=== PATIENT | male | born 1950 | race Caucasian/White ===

== ENCOUNTER → 2016-04-06 | Day surgery (SDC) | payer OTHER ==
[2016-04-03 11:45] VITALS: Ht 172.7 cm; Wt 127.3 kg
[~2016-04-06] VITALS: Ht 172.7 cm; Wt 127.3 kg
[~2016-04-06] MED LIST: ALLO300T2 PO; ATOR-24 PO; CARV12.52 PO; DABI150C PO; IOPAMIDOL INJ 61% 15 ML VIAL ONE; LIDOCAINE HCL 1% MPF 5 ML VIAL ONE; MULT-506 PO; NORT10CA PO; NORT10CA2 PO; OXYC1TAB3 PO; PRED10TA PO; SODIUM CHLORIDE 0.9% INJ 10 ML VIAL ONE
[2016-04-06 14:05] VITALS: TEMP 36.8
--- NOTE | 2016-04-06 15:01 | History & Physical Bridge - [place] ---
H&P Re-Evaluation Bridge Note: I have examined the patient, reviewed the History & Physical and in the interval since the performance of the History & Physical I have noted the following changes of clinical significance: No changes noted
[2016-04-06 15:23] VITALS: BP_SYST 146; PULSE 103; O2SAT 96
--- NOTE | 2016-04-06 15:26 | Discharge Instructions ---
Discharge Instructions Visit Reason for Visit: Lumbar Radiculopathy Discharge Discharge Diagnosis / Problem: left leg pain Discharge Goals Goal(s): Decrease discomfort, Improve function Medications Stopped Medications Name(s): Pradaxa Activity Recommendations Activity Limitations: resume your previous activity Anesthesia . Post Anesthesia Instructions: If you have had General Anesthesia or IV Sedation: * Do not drive today. * Resume driving when surgeon permits. * Do not make important decisions or sign legal documents today. * Call surgeon for: 1. Temperature elevations greater than 101 degrees F. 2. Uncontrollable pain. 3. Excessive bleeding. 4. Persistent nausea and vomiting. 5. Medication intolerance (nausea, vomiting or rash). * For nausea and vomiting use only clear liquids such as: tea, soda, bouillon until nausea subsides, then gradually increase diet as tolerated. * If you have any concerns or questions, call your surgeon's office. If physician is unavailable and it is an emergency, call 911 or go to the nearest emergency room. . Diet Recommendations Recommended Home Diet: resume previous diet Procedures Procedures Performed: Lumbar Epidural Steroid Injection Pending Studies Studies pending at discharge: no Medical Emergencies . Who to Call and When: Medical Emergencies: If at any time you feel your situation is an emergency, please call 911 immediately. . Non-Emergent Contact Non-Emergency issues call your: Specialist . . "Provider Documentation" section prepared by Tanner Victoria.
--- NOTE | 2016-04-06 15:37 | OPERATIVE REPORT ---
DATE OF OPERATION: 04/06/2016 PREOPERATIVE DIAGNOSES: Grade 1 L5-S1 spondylolisthesis with foraminal narrowing, and the left S1 radiculopathy. POSTOPERATIVE DIAGNOSES: Same. PROCEDURE: Left paramedian L5-S1 intralaminar epidural steroid injection under fluoroscopic guidance. INDICATIONS FOR PROCEDURE: The patient is a 65-year-old white male who presents today for an epidural steroid injection. He responded favorably to an epidural injection 6 months ago. The pain has returned and he is not responding to conservative measures, currently presents to proceed with an epidural injection to provide him with relief in both function and pain. PHYSICAL EXAMINATION: Pleasant male, seated somewhat comfortably. He has point tenderness to palpation of the left sciatic notch. He had normal lower extremity strength and sensation with negative seated straight leg raises. CONSENT: Verbal and written consent was obtained from the patient. Risks and benefits were reviewed. Risks include but are not limited to epidural abscess, epidural hematoma, allergic reaction, dural puncture. The patient wishes to proceed. DESCRIPTION OF PROCEDURE: The patient was taken back to the special procedures room of the [facility] where he was maintained in a prone position. Backside was cleansed with Betadine x3 and a dry sterile dressing was applied. Fluoroscope was used to identify the L5-S1 intralaminar space and overlying skin on the left side was anesthetized with 4 mL of lidocaine 1% with a 25-gauge 1.5-inch needle. A 22-gauge 4.25-inch Tuohy needle was then directed down towards the intralaminar space. It was advanced under lateral fluoroscopic guidance. Loss of resistance was noted at a total depth of 12 cm with the hub of the needle on the skin. He then underwent injection of 1 mL of Isovue 300 contrast which demonstrated epidural uptake which was confirmed by both AP and lateral views. He then underwent injection after negative aspiration of 40 mg of Depo-Medrol and 4 mL of preservative free sodium chloride. Injection was well tolerated. DISPOSITION: 1. The patient is taken out into the discharge recovery area where he will be discharged home once discharge criteria have been met. 2. Follow up in the [facility] office in 2-4 weeks. I attest to the content of the Intraoperative Record and any orders documented therein. Any exceptio ns are noted below.
== END | disposition home or self-care (01) ==
LOC: X.SURG 13:59
PROVIDERS: ATTEND Physical Medicine & Rehabilitation
DX: M43.16 Spondylolisthesis, lumbar region (principal); M48.06 Spinal stenosis, lumbar region; M54.16 Radiculopathy, lumbar region; I48.91 Unspecified atrial fibrillation; E11.9 Type 2 diabetes mellitus without complications; I50.9 Heart failure, unspecified; E78.5 Hyperlipidemia, unspecified; Z98.890 Other specified postprocedural states

== ENCOUNTER 2016-04-17 04:31 | Emergency (ER) | payer OTHER ==
[~2016-04-17] VITALS: Ht 172.7 cm; Wt 115.5 kg
[~2016-04-17 04:31] MED LIST changes: -IOPAMIDOL INJ 61% 15 ML VIAL ONE; -LIDOCAINE HCL 1% MPF 5 ML VIAL ONE; -NORT10CA2 PO; -OXYC1TAB3 PO; -PRED10TA PO; -SODIUM CHLORIDE 0.9% INJ 10 ML VIAL ONE
[2016-04-17 04:37] VITALS: TEMP 36.7; Ht 172.7 cm; Wt 115.5 kg
[2016-04-17] MEDS ORDERED: ONDANSETRON INJ 2 MG/ML 2 ML VIAL IV STA (04:50)
[2016-04-17] MEDS ORDERED: SODIUM CHLORIDE 0.9% 1000ML 1,000 ML IV STA (04:50)
[2016-04-17] MEDS ORDERED: HYDROmorphone INJ 1 MG/ML SYR IV STA (04:50)
--- NOTE | 2016-04-17 05:14 | EMERGENCY ROOM VISIT NOTE ---
History Report prepared by Joselo: Oumou Tolentino Under the Supervision of: Dr. Clark Brar M.D. First contact with patient: 04:41 Chief Complaint: GROIN PAIN Stated Complaint: SEVERE PAIN IN GROIN AREA/LEG History of Present Illness The patient is a 65 year old male who presents to the Emergency Room with complaints of constant left hip pain beginning 1 week ago. The patient states that he had an epidural 10 days ago for sciatica and it helped for a few days before he began feeling hip and leg pain. He reports that his doctor saw him the next day to rule out a blood clot and he found nothing and thought that his pain may be muscle related. He complains of pressure deep in his hip and notes that his pain is worsened with sitting down. The patient denies any back pain, chest pain, shortness of breath, rash, abdominal pain, calf pain, incontinence, numbness, and weakness. He notes that he has been taking Tylenol and is on Pradaxa for A-Fib which he stopped taking 4 days before his epidural. The patient notes that he was on steroids for 10 days before the epidural. He reports a history of 2 cervical surgeries. Source of History: patient Onset: 1 week ago Position: other (left hip) Quality: pressure Timing: constant Modifying Factors (Worsening): other (sitting) Associated Symptoms: No SOB, No abdominal pain, No back pain, No chest pain , No numbness, No rash, No weakness Note: He notes associated leg pain. He denies incontinence and calf pain. Review of Systems See HPI for pertinent positives & negatives. A total of 10 systems reviewed and were otherwise negative. Past Medical & Surgical Medical Problems: (1) A-fib (2) Diabetes Surgical Problems: (1) Hx of cervical spine surgery Family History No pertinent family history stated. Social History Smoking Status: Never Smoker Marital Status: Housing Status: lives with significant other Current/Historical Medications Scheduled Allopurinol (Zyloprim), 300 MG PO QAM Atorvastatin (Lipitor), 40 MG PO HS Carvedilol (Coreg), 12.5 MG PO BID Dabigatran Etexilate Mesylate (Pradaxa), 150 MG PO BID Multivitamin (Multivitamin), 1 TAB PO DAILY Nortriptyline (Pamelor), 1 TAB PO UD Nortriptyline Hcl (Pamelor), 10 MG PO HS Allergies Coded Allergies: No Known Allergies (Unverified , 04/17/16) Physical Exam Vital Signs Date Time Temp Pulse Resp B/P Pulse Ox O2 Delivery O2 Flow Rate FiO2 04/17/16 07:36 86 18 128/90 95 Room Air 04/17/16 06:26 90 16 117/79 94 Room Air 04/17/16 04:37 36.7 110 18 129/88 95 Room Air Physical Exam GENERAL: Patient is uncomfortable appearing and in moderate distress. HEENT: No acute trauma, normocephalic atraumatic, mucous membranes moist, no nasal congestion, no scleral icterus. NECK: No stridor, no adenopathy, no meningismus, trachea is midline. LUNGS: No dyspnea. Clear to auscultation and equal bilaterally. No wheeze, no rhonchi. HEART: Regular rate and rhythm. No murmurs, rubs, gallops appreciated. ABDOMEN: Soft, nontender, bowel sounds positive, no masses appreciated, no peritonitis. BACK: No midline tenderness, no CVA tenderness. Vague tenderness from the left lower back into the left buttock, no swelling. EXTREMITIES: Normal motion all extremities, no cyanosis, no edema. NEUROLOGIC: Alert and oriented, no acute motor or sensory deficits, no focal weakness, cranial nerves grossly intact. SKIN: No rash, no jaundice, no diaphoresis. Medical Decision & Procedures ER Provider Diagnostic Interpretation: X ray results and stated below per my interpretation and radiologist interpretation. Other radiology results and stated below per my review and radiologist interpretation: Venous Doppler left leg LEFT VENOUS DOPP LOWER EXT UNILAT FINDINGS: Normal study IMPRESSION: Normal study Electronically signed by: Nathan Velasquez M.D. 04/17/2016 6:36 AM Dictated Date/Time: 04/17/2016 6:34 AM 2-View Hip W/ Pelvis: Mild degenerative changes, no fracture, no dislocation. Laboratory Results 04/17/16 05:00 Red Blood Count 5.04, Mean Corpuscular Volume 88.9, Mean Corpuscular Hemoglobin 31.2, Mean Corpuscular Hemoglobin Concent 35.0, Mean Platelet Volume 10.5, Neutrophils (%) (Auto) 59.0, Lymphocytes (%) (Auto) 30.3, Monocytes (%) (Auto) 6.7, Eosinophils (%) (Auto) 3.3, Basophils (%) (Auto) 0.6, Neutrophils # (Auto) 3.98, Lymphocytes # (Auto) 2.04, Monocytes # (Auto) 0.45, Eosinophils # (Auto) 0.22, Basophils # (Auto) 0.04 04/17/16 05:00 Test 04/17/16 05:00 04/17/16 07:39 White Blood Count 6.74 K/uL (4.8-10.8) Red Blood Count 5.04 M/uL (4.7-6.1) Hemoglobin 15.7 g/dL (14.0-18.0) Hematocrit 44.8 % (42-52) Mean Corpuscular Volume 88.9 fL (80-100) Mean Corpuscular Hemoglobin 31.2 pg (25-34) Mean Corpuscular Hemoglobin Concent 35.0 g/dl (32-36) Platelet Count 241 K/uL (130-400) Mean Platelet Volume 10.5 fL (7.4-10.4) Neutrophils (%) (Auto) 59.0 % Lymphocytes (%) (Auto) 30.3 % Monocytes (%) (Auto) 6.7 % Eosinophils (%) (Auto) 3.3 % Basophils (%) (Auto) 0.6 % Neutrophils # (Auto) 3.98 K/uL (1.4-6.5) Lymphocytes # (Auto) 2.04 K/uL (1.2-3.4) Monocytes # (Auto) 0.45 K/uL (0.11-0.59) Eosinophils # (Auto) 0.22 K/uL (0-0.5) Basophils # (Auto) 0.04 K/uL (0-0.2) RDW Standard Deviation 45.6 fL (36.4-46.3) RDW Coefficient of Variation 13.9 % (11.5-14.5) Immature Granulocyte % (Auto) 0.1 % Immature Granulocyte # (Auto) 0.01 K/uL (0.00-0.02) Erythrocyte Sedimentation Rate 9 mm/hr (0-14) Prothrombin Time 11.4 SECONDS (9.0-12.0) Prothromb Time International Ratio 1.1 (0.9-1.1) Activated Partial Thromboplast Time 30.6 SECONDS (21.0-31.0) Partial Thromboplastin Ratio 1.2 Anion Gap 9.0 mmol/L (3-11) Est Creatinine Clear Calc Drug Dose 142.0 ml/min Estimated GFR () 119.1 Estimated GFR (Non- 102.7 BUN/Creatinine Ratio 30.4 (10-20) Calcium Level 8.8 mg/dl (8.5-10.1) C-Reactive Protein < 0.29 mg/dl (0-0.29) Laboratory results as reviewed by me. Medications Administered Medications (Trade) Dose Ordered Sig/Omar Route Start Time Stop Time Status Last Admin Dose Admin Sodium Chloride (Nss 1000ml) 1,000 ml @ 75 mls/hr [id number] STAT IV 04/17/16 04:50 04/17/16 18:09 04/17/16 05:09 75 MLS/HR Hydromorphone HCl (Dilaudid Inj) 1 mg NOW STAT IV 04/17/16 04:50 04/17/16 04:52 DC 04/17/16 05:09 1 MG Ondansetron HCl (Zofran Inj) 4 mg NOW STAT IV 04/17/16 04:50 04/17/16 04:52 DC 04/17/16 05:08 4 MG ED Course 0441: The patient was evaluated in room B2. A complete history and physical exam was performed. 0450: Zofran Inj 4mg IV, Dilaudid Inj 1mg IV, Sodium Chloride 1000 ml @ 75 mls/ hr IV. 0722: I reevaluated the patient and he is feeling okay. 0730: The patient was signed out to Dr. Hernandez. Medical Decision Differential: Musculoskeletal, Disc Herniation, Fracture, Cord Compression, Discitis, Infectious, Aortic Pathology, Renal Colic, UTI/Pyelonephritis, Acute Exacerbation of Chronic Pain, Sciatica, Cauda Equina, amongst other pathologies entertained. Pleasant 65 yr old male with history of sciatica issues who notes worsening left sciatica over the last month. He was seen in pain management and given epidural injection last week after holding pradaxa a few days. Symptoms came back rapidly with worsening left sciatic pain. Labs unremarkable. Xray and US negative. There is concern for epidural bleed given his symptoms and blood thinner use thus I felt that MRI would be compulsory. Fortunately no neuro deficits nor loss of bowel/bladder control. Given single dose dilaudid here with much improvement in pain. Stable when signed out to Dr Hernandez awaiting MRI results. Impression Primary Impression: Sciatica, left side Scribe Attestation The scribe's documentation has been prepared under my direction and personally reviewed by me in its entirety. I confirm that the note above accurately reflects all work, treatment, procedures, and medical decision making performed by me. Departure Information Dispostion Still a Patient Referrals Virginia Gordon M.D. (PCP) Patient Instructions My [facility]
[2016-04-17 05:17] LABS: BASO % 0.6 %; BASO ABS # 0.04 K/uL (0-0.2); COMPLETE YES; EOS % 3.3 %; HEMATOCRIT 44.8 % (42-52); IG% 0.1 %; LYMPH % 30.3 %; LYMPH ABS # 2.04 K/uL (1.2-3.4); MEAN CELL VOLUME 88.9 fL (80-100); MEAN CORPUSCULAR HEMOGLOBIN 31.2 pg (25-34); MEAN PLATELET VOLUME 10.5 fL (7.4-10.4); MONO % 6.7 %; PLATELET COUNT 241 K/uL (130-400); RED BLOOD COUNT 5.04 M/uL (4.7-6.1); WHITE BLOOD COUNT 6.74 K/uL (4.8-10.8)
[2016-04-17] MEDS ORDERED: NORT10CA2 PO (05:21)
[2016-04-17 05:30] LABS: INR 1.1 (0.9-1.1); PARTIAL THROMBOPLASTIN RATIO 1.2; PROTHROMBIN TIME (PATIENT) 11.4 SECONDS (9.0-12.0)
[2016-04-17 05:38] LABS: BLOOD UREA NITROGEN 19 mg/dl (7-18); BUN/CREATININE RATIO 30.4 (10-20); C-REACTIVE PROTEIN < 0.29 mg/dl (0-0.29); CALCIUM 8.8 mg/dl (8.5-10.1); CARBON DIOXIDE 29 mmol/L (21-32); CHLORIDE 105 mmol/L (98-107); CREATININE 0.64 mg/dl (0.60-1.40); GLUCOSE 135 mg/dl (70-99); POTASSIUM 3.8 mmol/L (3.5-5.1); SODIUM 143 mmol/L (136-145)
--- NOTE | 2016-04-17 06:37 | DIAGNOSTIC IMAGING REPORT ---
Venous Doppler left leg LEFT VENOUS DOPP LOWER EXT UNILAT CLINICAL HISTORY: left leg pain pain. Edema. TECHNIQUE: Venous Doppler COMPARISON STUDY: None FINDINGS: Normal study IMPRESSION: Normal study Electronically signed by: Nathan Velasquez M.D. 04/17/2016 6:36 AM Dictated Date/Time: 04/17/2016 6:34 AM
--- NOTE | 2016-04-17 07:42 | DIAGNOSTIC IMAGING REPORT ---
SINGLE VIEW PELVIS; 2 VIEWS LEFT HIP CLINICAL HISTORY: Left hip pain. No reported history of trauma. FINDINGS: 2 AP pelvic radiographs with AP and frog-leg views of the left hip are obtained. No prior studies are available for comparison at the time of dictation. The skeletal structures are osteopenic. No fracture is seen. Enthesophytes arise from the greater trochanters of the proximal femora. There is mild arthritic change present in both hips. Mild sclerotic change is noted in the sacroiliac joints. Lumbosacral spondylosis is partially visualized. A large enthesophyte or exostosis arises from the right ileum. The overlying soft tissues are normal in appearance. There is a nonobstructed abdominal bowel gas pattern. IMPRESSION: 1. No acute bony abnormality is seen in the hips or pelvis. 2. Osteopenia and degenerative change as above. 3. A large spur or exostosis arises from the right ilium. Electronically signed by: Erik Magallanes M.D. 04/17/2016 7:40 AM Dictated Date/Time: 04/17/2016 7:38 AM
--- NOTE | 2016-04-17 08:53 | DIAGNOSTIC IMAGING REPORT ---
MRI LUMBAR SPINE COMBO CLINICAL HISTORY: Low back pain. Left-sided sciatica. COMPARISON STUDY: No priors. TECHNIQUE: MRI of lumbar spine is performed utilizing various T1 and T2-weighted sequences in the axial and sagittal planes. Contrast-enhanced sequences are acquired following the IV administration of 11 cc of Gadavist. FINDINGS: Lumbar spine: Vertebral body height is maintained throughout the lumbar spine. There are bilateral pars defects at L5 with 8 mm of anterolisthesis at L5-S1. Minimal anterolisthesis is present at L3-L4. The transverse and spinous processes are intact as visualized. Small anterior osteophytes are seen in the lower lumbar spine. Small hemangiomas are identified in the bodies of T12, L1, and S1. Mild degenerative endplate edema is present at L2-L3 and L5-S1. No destructive bony lesion is seen. Intervertebral discs: There is degenerative disc desiccation throughout the lumbar spine. Advanced loss of height is seen at L5-S1. Spinal cord and central canal: Partially visualized spinal cord is normal in morphology and signal intensity. The conus medullaris terminates at the T12-L1 interspace. The nerve roots of the cauda equina are normal in morphology. No abnormal enhancement is seen on the postcontrast series. There is no evidence of epidural fluid collection/hematoma. L1-L2: Unremarkable. L2-L3: There is a small posterior disc bulge eccentric to the left. In conjunction with hypertrophy of the ligamentum flavum there is minimal acquired compromise of the central canal. The minimum AP diameter measures 7.5 mm. There is left-sided subarticular stenosis, with possible impingement on the exiting left L2 nerve root. The disc also abuts the transiting left-sided nerve roots. Facet arthropathy causes mild left neural foraminal stenosis. L3-L4: There is minimal posterior disc bulge. The central canal is widely patent. Facet arthropathy causes mild bilateral neural foraminal stenosis. There are bilateral facet effusions. L4-L5: The central canal is patent. Facet arthropathy causes mild bilateral neural foraminal stenosis. L5-S1: The central canal is clear. Anterolisthesis causes bilateral subarticular stenosis. There may be impingement on the exiting bilateral L5 nerve roots. Facet arthropathy is of no consequence. The neural foramina are clear. Sacrum: Partially visualized sacrum is normal in morphology and signal intensity. Soft tissues: There is fatty atrophy of the paraspinous musculature. The partially imaged retroperitoneal structures are grossly unremarkable but incompletely assessed. IMPRESSION: 1. There are bilateral pars defects at L5 with Grade I anterolisthesis at L5-S1. 2. Lumbosacral spondylosis as detailed above. Minimal acquired compromise of the central canal is seen at L2-L3. See discussion for detailed level by level analysis. 3. Degenerative disc disease as above. Dictated: 04/17/2016 8:34 AM Transcribed: 04/17/2016 8:53 AM [email or web address] Electronically signed by: Erik Magallanes M.D. 04/17/2016 8:54 AM Dictated Date/Time: 04/17/2016 8:34 AM
[2016-04-17 09:43] VITALS: BP 135/97; PULSE 91; O2SAT 96
[2016-04-17] MEDS ORDERED: OXYC1TAB3 PO (09:55)
[2016-04-17] MEDS ORDERED: PRED10TA PO (09:55)
--- NOTE | 2016-04-17 18:05 | EMERGENCY ROOM VISIT NOTE ---
ED Visit Note First contact with patient: 07:33 I received this patient in signout at the change of shift from Dr. Brar, pending MRI of the lumbar spine. It is read as below. MRI LUMBAR SPINE COMBO CLINICAL HISTORY: Low back pain. Left-sided sciatica. COMPARISON STUDY: No priors. TECHNIQUE: MRI of lumbar spine is performed utilizing various T1 and T2-weighted sequences in the axial and sagittal planes. Contrast-enhanced sequences are acquired following the IV administration of 11 cc of Gadavist. FINDINGS: Lumbar spine: Vertebral body height is maintained throughout the lumbar spine. There are bilateral pars defects at L5 with 8 mm of anterolisthesis at L5-S1. Minimal anterolisthesis is present at L3-L4. The transverse and spinous processes are intact as visualized. Small anterior osteophytes are seen in the lower lumbar spine. Small hemangiomas are identified in the bodies of T12, L1, and S1. Mild degenerative endplate edema is present at L2-L3 and L5-S1. No destructive bony lesion is seen. Intervertebral discs: There is degenerative disc desiccation throughout the lumbar spine. Advanced loss of height is seen at L5-S1. Spinal cord and central canal: Partially visualized spinal cord is normal in morphology and signal intensity. The conus medullaris terminates at the T12-L1 interspace. The nerve roots of the cauda equina are normal in morphology. No abnormal enhancement is seen on the postcontrast series. There is no evidence of epidural fluid collection/hematoma. L1-L2: Unremarkable. L2-L3: There is a small posterior disc bulge eccentric to the left. In conjunction with hypertrophy of the ligamentum flavum there is minimal acquired compromise of the central canal. The minimum AP diameter measures 7.5 mm. There is left-sided subarticular stenosis, with possible impingement on the exiting left L2 nerve root. The disc also abuts the transiting left-sided nerve roots. Facet arthropathy causes mild left neural foraminal stenosis. L3-L4: There is minimal posterior disc bulge. The central canal is widely patent. Facet arthropathy causes mild bilateral neural foraminal stenosis. There are bilateral facet effusions. L4-L5: The central canal is patent. Facet arthropathy causes mild bilateral neural foraminal stenosis. L5-S1: The central canal is clear. Anterolisthesis causes bilateral subarticular stenosis. There may be impingement on the exiting bilateral L5 nerve roots. Facet arthropathy is of no consequence. The neural foramina are clear. Sacrum: Partially visualized sacrum is normal in morphology and signal intensity. Soft tissues: There is fatty atrophy of the paraspinous musculature. The partially imaged retroperitoneal structures are grossly unremarkable but incompletely assessed. IMPRESSION: 1. There are bilateral pars defects at L5 with Grade I anterolisthesis at L5-S1. 2. Lumbosacral spondylosis as detailed above. Minimal acquired compromise of the central canal is seen at L2-L3. See discussion for detailed level by level analysis. 3. Degenerative disc disease as above. Dictated: 04/17/2016 8:34 AM Transcribed: 04/17/2016 8:53 AM [email or web address] Electronically signed by: Erik Magallanes M.D. 04/17/2016 8:54 AM Dictated Date/Time: 04/17/2016 8:34 AM Patient was informed of the findings. He will be started on a prednisone taper. He was discharged with OxyIR. Patient has muscle relaxers as prescribed by his pain management physician. He will follow-up with Dr. Victoria this week for reevaluation and return to the ER for worsening of symptoms or any medical concerns. Please refer to Dr. Brar's notes for further details of the history, physical and visit.
== END 2016-04-17 10:25 | disposition home or self-care (01) ==
LOC: C.EDB 04:32
DX: M53.3 Sacrococcygeal disorders, not elsewhere classified (principal); I48.91 Unspecified atrial fibrillation; E11.9 Type 2 diabetes mellitus without complications; Z98.890 Other specified postprocedural states; Z79.899 Other long term (current) drug therapy

== ENCOUNTER → 2017-07-03 | Outpatient (CLI) | payer OTHER ==
[~2017-07-03] MED LIST changes: -DABI150C PO; -NORT10CA PO; +WARF7.5T4 PO
== END | disposition home or self-care (01) ==
LOC: C.RDSM 14:30
PROVIDERS: ATTEND Physical Medicine & Rehabilitation
DX: M43.16 Spondylolisthesis, lumbar region (principal); M54.16 Radiculopathy, lumbar region